=== PATIENT | female | born 1945 | race Caucasian/White ===

== ENCOUNTER → 2016-08-22 | Outpatient (CLI) | payer MEDICARE ==
[~2016-08-22] MED LIST: ASPERDRINK81 MG; BYSTOLIC20 MG; ESTROGEN; FLEXERIL10 M1 PO; IBUPROFEN PO; IBUPROFEN600 MG PO; LIPITOR; LISINOPRIL20 MG PO; NORCO 5/325 TAB1 TAB PO; PREDNISONE PO; PROZAC; TYLENOL #3 PO; ZOCOR-BORROW, D10 MG PO
[2016-08-22 13:05] LABS: BUN/CREATININE RATIO 17.27; CALCIUM SERUM 9.4 mg/dL (8.4-10.2); CREATININE SERUM 1.1 mg/dL (0.6-1.4); GLOM FILT RATE Estimated 50.8 mL/min (>60); POTASSIUM 4.3 mmol/L (3.5-5.1)
[2016-08-23 19:06] LABS: MICROALB UR (PNL) 0.5 mg/dL (***)
== END | disposition home or self-care (01) ==
LOC: SLAB 11:48
PROVIDERS: Internal Medicine Cardiovascular Disease
DX: I25.10 Atherosclerotic heart disease of native coronary artery without angina pectoris (principal)
CPT/HCPCS: 36415; 80048; 82043; 82570; 84460